=== PATIENT | male | born 1980 | race American Indian/Alaskan Native ===

== ENCOUNTER 2017-06-13 09:17 | Emergency (ER) | payer SELFPAY ==
[2017-06-13 10:32] LABS: Hematocrit 47.2 % (35.5-45.6); Hemoglobin 15.7 gm/dl (11.8-15.2); Mean Corpuscular HGB Conc 33 % (32-34); Mean Corpuscular Hemoglobin 29 pg (28-32); Mean Corpuscular Volume 87 fl (84-94); Platelet Count 176 K/mm3 (140-440); Red Blood Count 5.46 M/mm3 (3.65-5.03); Red Cell Distribution Width 14.4 % (13.2-15.2)
[2017-06-13 10:38] LABS: BUN/Creatinine Ratio 13; Blood Urea Nitrogen 14 mg/dL (9-20); Calcium 9.8 mg/dL (8.4-10.2); Hemolysis Index 11
--- NOTE | 2017-06-13 11:07 | XRay Report ---
RIGHT FINGER RADIOGRAPHS INDICATION: Right thumb cellulitis. COMPARISON: None similar at this institution. FINDINGS: AP view of the right hand with oblique and lateral projections of the thumb demonstrate intact bones and joints. Thumb soft tissue somewhat prominent without definite air or radiopaque foreign body. CONCLUSION: Right thumb soft tissue swelling possible without acute bony abnormality. Thank you for the opportunity to participate in this patient's care.
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
[2017-06-13 12:11] LABS: Band Neutrophils # (Manual) 0.1 K/mm3; Basophils % (Manual) 0 % (0.0-1.8); RBC Morphology Normal; Total Cells Counted 100
[2017-06-13 15:23] VITALS: BP 130/81
== END 2017-06-13 12:35 | disposition home or self-care (01) ==
LOC: ED 09:17
DX: L02.511 Cutaneous abscess of right hand (principal); F17.200 Nicotine dependence, unspecified, uncomplicated
CPT/HCPCS: 36415; 80048; 85007; 85025